=== PATIENT | male | born 1960 | race Caucasian/White ===

== ENCOUNTER 2019-07-08 13:38 | Inpatient (IN) | payer OTHER ==
[2019-07-08 17:33] LABS: Basophils # (Auto) 0.1 K/mm3 (0.0-0.1); Eosinophils # (Auto) 0.1 K/mm3 (0.0-0.4); Eosinophils % (Auto) 1.5 % (0.0-4.3); Monocytes # (Auto) 0.5 K/mm3 (0.0-0.8); Monocytes % (Auto) 9.6 % (0.0-7.3)
[2019-07-08 18:02] LABS: Alanine Aminotransferase 34 units/L (7-56); Albumin 4.3 g/dL (3.9-5); BUN/Creatinine Ratio 21; Blood Urea Nitrogen 21 mg/dL (9-20); Calcium 9.5 mg/dL (8.4-10.2); Hemolysis Index 0
[2019-07-08 18:14] LABS: Hemoglobin 6.5 gm/dl (11.8-15.2); Red Blood Count 3.23 M/mm3 (3.65-5.03)
[2019-07-08 18:15] LABS: Basophils % (Auto) 1.6 % (0.0-1.8); Hematocrit 20.6 % (35.5-45.6); Lymphocytes # (Auto) 1.7 K/mm3 (1.2-5.4); Lymphocytes % (Auto) 34.1 % (13.4-35.0); Mean Corpuscular HGB Conc 32 % (32-34); Mean Corpuscular Volume 64 fl (84-94); Mean Platelet Volume 8.9 fl (6-12); Platelet Count 118 K/mm3 (140-440); Red Cell Distribution Width 18.1 % (13.2-15.2)
[2019-07-08] MEDS ORDERED: SODIUM CHLORIDE 0.9% 500 ML 500 ML IV ONE (21:37)
--- NOTE | 2019-07-08 21:37 | Emergency Department Report ---
ED Dizziness HPI - General Chief Complaint: Nausea/Vomiting/Diarrhea Stated Complaint: NAUSEA/HEADACHE/DIZZY Time Seen by Provider: 07/08/19 20:15 Source: patient Mode of arrival: Ambulatory Limitations: No Limitations, Language Barrier (Manager Credit Risk was utilized DAJUAN Vazquez) - History of Present Illness Initial Comments: 59-year-old male presents emerged department complaining of a one-week history of gradually worsening dizziness and a couple day history of nausea with episodes of vomiting. Reports symptoms been associated with a dull headache and occasional blurred vision but denies any chest pain, shortness of breath, abdominal pain, fever, chills, sweats, hemoptysis, hematemesis, hematochezia. Reports no rashes. Ports no new no new no new medications. Ports having a possible history of cirrhosis but unsure of the type of the of the origin. He reports no illicit drug use or EtOH history nor does he report any trauma. MD Complaint: dizziness, lightheadedness History of Same: Yes History of Trauma: No Severity: mild, moderate Worsens With: movement Associated Symptoms: malaise. denies: ataxia, confusion, fever/chills, shortness of breath, syncope, weakness - Related Data Previous Rx's Medication Instructions Recorded Last Taken Type Famotidine [Pepcid] 20 mg PO BID #60 tablet 02/13/15 Unknown Rx Ferrous Sulfate [Feosol 325 MG tab] 325 mg PO TID #90 tablet 02/13/15 Unknown Rx Levothyroxine [Synthroid] 100 mcg PO DAILY@0600 #30 tablet 02/13/15 Unknown Rx Promethazine [Phenergan SUPPOS] 25 mg AL Q6H PRN #30 supp.rect 02/13/15 Unknown Rx Spironolactone [Aldactone] 50 mg PO QDAY #30 tablet 02/13/15 Unknown Rx nadoloL [Corgard] 40 mg PO QDAY #30 tablet 02/13/15 Unknown Rx Allergies Allergy/AdvReac Type Severity Reaction Status Date / Time No Known Allergies Allergy Unverified 02/09/15 15:23 ED Review of Systems ROS: Stated complaint: NAUSEA/HEADACHE/DIZZY Other details as noted in HPI Comment: All other systems reviewed and negative ED Past Medical Hx - Past Medical History Hx Congestive Heart Failure: No Hx Diabetes: No Hx Asthma: No Hx COPD: No - Surgical History Past Surgical History?: Yes Additional Surgical History: left hand surgery. right upper arm - Social History Smoking Status: Never Smoker Substance Use Type: None - Medications Home Medications: Home Medications Medication Instructions Recorded Confirmed Last Taken Type Famotidine [Pepcid] 20 mg PO BID #60 tablet 02/13/15 Unknown Rx Ferrous Sulfate [Feosol 325 MG tab] 325 mg PO TID #90 tablet 02/13/15 Unknown Rx Levothyroxine [Synthroid] 100 mcg PO DAILY@0600 #30 tablet 02/13/15 Unknown Rx Promethazine [Phenergan SUPPOS] 25 mg AL Q6H PRN #30 supp.rect 02/13/15 Unknown Rx Spironolactone [Aldactone] 50 mg PO QDAY #30 tablet 02/13/15 Unknown Rx nadoloL [Corgard] 40 mg PO QDAY #30 tablet 02/13/15 Unknown Rx ED Physical Exam - General Limitations: No Limitations General appearance: alert, in no apparent distress - Head Head exam: Present: atraumatic, normocephalic - Eye Eye exam: Present: normal appearance, PERRL, EOMI. Absent: conjunctival injection, nystagmus Pupils: Present: normal accommodation - ENT ENT exam: Present: normal exam, normal orophraynx, mucous membranes moist, TM's normal bilaterally, other (Severe dental erosion appears to be almost uniform) - Neck Neck exam: Present: normal inspection, full ROM, other (No JVD noted.). Absent: meningismus, lymphadenopathy, thyromegaly - Respiratory Respiratory exam: Present: normal lung sounds bilaterally. Absent: respiratory distress, wheezes, rales, chest wall tenderness, accessory muscle use - Cardiovascular Cardiovascular Exam: Present: regular rate, normal rhythm. Absent: bradycardia, tachycardia, systolic murmur, diastolic murmur, rubs, gallop - GI/Abdominal GI/Abdominal exam: Present: soft, normal bowel sounds, other (No Rovsing sign, no Lara Rogers, no Riley sign, no tenderness at McBurney's.. No CVA tenderness.). Absent: tenderness, guarding, rebound - Rectal Rectal exam: Present: deferred, normal inspection, heme (+) stool. Absent: normal rectal tone, fecal impaction, mass, normal prostate, prostate tenderness - exam: Present: normal inspection - Extremities Exam Extremities exam: Present: normal inspection, full ROM, normal capillary refill - Back Exam Back exam: Present: normal inspection. Absent: CVA tenderness (R), CVA tenderness (L), muscle spasm - Neurological Exam Neurological exam: Present: alert, oriented X3, CN II-XII intact, normal gait. Absent: motor sensory deficit - Psychiatric Psychiatric exam: Present: normal affect, normal mood. Absent: anxious, flat affect, manic - Skin Skin exam: Present: warm, dry, intact, normal color. Absent: rash, cyanosis, diaphoretic, erythema ED Course Vital Signs 07/08/19 14:12 Temperature 97.4 F L Pulse Rate 55 L Respiratory 16 Rate Blood Pressure 118/65 O2 Sat by Pulse 98 Oximetry ED Medical Decision Making - Lab Data Result diagrams: 07/08/19 16:38 07/08/19 16:38 Critical care attestation.: If time is entered above; I have spent that time in minutes in the direct care of this critically ill patient, excluding procedure time. ED Disposition Clinical Impression: GI bleed, Anemia Disposition: OP ADMIT IP TO THIS HOSP Is pt being admited?: Yes Does the pt Need Aspirin: No Condition: Stable Referrals: PRIMARY CARE, [Primary Care Provider] - 3-5 Days
[2019-07-08] MEDS ORDERED: MAGNESIUM HYDROXIDE (MOM) ORAL LIQD UDC PO PRN (22:13)
[2019-07-08] MEDS ORDERED: ONDANSETRON 4 MG/2 ML INJ IV PRN (22:13)
[2019-07-08] MEDS ORDERED: ACETAMINOPHEN 325 MG TAB PO PRN (22:13)
--- NOTE | 2019-07-08 23:03 | History and Physical Report ---
History of Present Illness Date of examination: 07/08/19 Date of admission: 07/08/19 21:38 Chief complaint: Dizziness Nausea History of present illness: 59 year old male seen in the ER complaining of dizziness which has been ongoing for a few days. He has also been having some nausea and vomiting. He denies any diarrhea. No bright red blood per rectum. He denies any fever, no chills, no abdominal pain. Denies any headaches. No chest pain or shortness of breath. Work up in the ER reveals a low hemoglobin of 6.5.,elevated blood glucose in the 200's but denies history of Diabetes Mellitus. Past History Past Medical History: hypothyroidism Past Surgical History: Other (Left Hand surgery) Social history: no significant social history Family history: no significant family history Medications and Allergies Allergies Allergy/AdvReac Type Severity Reaction Status Date / Time No Known Allergies Allergy Unverified 02/09/15 15:23 Home Medications Medication Instructions Recorded Confirmed Last Taken Type Levothyroxine [Synthroid] 100 mcg PO DAILY@0600 #30 tablet 02/13/15 07/08/19 Unknown Rx Spironolactone [Aldactone] 50 mg PO QDAY #30 tablet 02/13/15 07/08/19 Unknown Rx nadoloL [Corgard] 40 mg PO QDAY #30 tablet 02/13/15 07/08/19 Unknown Rx Furosemide [Lasix TAB] 40 mg PO QDAY 07/08/19 07/08/19 Unknown History Active Meds: Active Medications Acetaminophen (Tylenol) 650 mg PO Q4H PRN PRN Reason: Pain MILD(1-3)/Fever >100.5/RENO Magnesium Hydroxide (Milk Of Magnesia) 30 ml PO Q4H PRN PRN Reason: Constipation Ondansetron HCl (Zofran) 4 mg IV Q8H PRN PRN Reason: Nausea And Vomiting Sodium Chloride (Sodium Chloride Flush Syringe 10 Ml) 10 ml IV BID SMITA Sodium Chloride (Sodium Chloride Flush Syringe 10 Ml) 10 ml IV PRN PRN PRN Reason: LINE FLUSH Review of Systems Constitutional: no fever, no chills Cardiovascular: no chest pain, no palpitations Respiratory: shortness of breath Gastrointestinal: nausea, no vomiting, no diarrhea Genitourinary Male: dysuria, hematuria Musculoskeletal: no neck pain, no low back pain Integumentary: no rash, no pruritis Neurological: other (Dizziness), no syncope, no change in mentation Exam - Constitutional Vitals: Temp Pulse Resp BP Pulse Ox 98.0 F 55 L 16 119/73 98 07/08/19 22:12 07/08/19 22:12 07/08/19 22:12 07/08/19 22:12 07/08/19 22:12 General appearance: Present: no acute distress, well-nourished - EENT Eyes: Present: PERRL, EOM intact ENT: hearing intact, clear oral mucosa, dentition normal - Neck Neck: Present: supple, normal ROM - Respiratory Respiratory effort: normal Respiratory: bilateral: CTA - Cardiovascular Rhythm: regular Heart Sounds: Present: S1 & S2 - Extremities Extremities: no ischemia, pulses intact, pulses symmetrical, No edema, Full ROM Peripheral Pulses: within normal limits - Abdominal General gastrointestinal: Present: soft, non-tender, non-distended - Integumentary Integumentary: Present: clear, warm, dry, pale - Musculoskeletal Musculoskeletal: strength equal bilaterally - Psychiatric Psychiatric: appropriate mood/affect, intact judgment & insight, cooperative - Neurologic Neurologic: CNII-XII intact, moves all extremities Results - Labs CBC & Chem 7: 07/08/19 16:38 07/08/19 16:38 Labs: Abnormal lab results 07/08/19 07/08/19 07/08/19 Range/Units 16:38 16:38 21:40 RBC 3.23 L (3.65-5.03) M/mm3 Hgb 6.5 L (11.8-15.2) gm/dl Hct 20.6 L (35.5-45.6) % MCV 64 L (84-94) fl MCH 20 L (28-32) pg RDW 18.1 H (13.2-15.2) % Plt Count 118 L (140-440) K/mm3 [place] % (Auto) 9.6 H (0.0-7.3) % Sodium 135 L (137-145) mmol/L Chloride 93.9 L (98-107) mmol/L BUN 21 H (9-20) mg/dL Glucose 215 H (75-100) mg/dL AST 59 H (5-40) units/L Alkaline Phosphatase 278 H (35-129) units/L Crossmatch See Detail Assessment and Plan - Patient Problems (1) Anemia Current Visit: Yes Status: Acute Plan to address problem: Probably from GI bleed . Will transfuse with packed red blood cells. Will monitor CBC. (2) GI bleed Current Visit: Yes Status: Acute Plan to address problem: He has denied any rectal bleeding. Stool is guaiac positive. Will consult Gastorenterology for further evaluation . (3) Hypothyroidism Current Visit: No Status: Acute Plan to address problem: Continue on levothyroxine once medications are reconciled. (4) DVT prophylaxis Current Visit: Yes Status: Acute Plan to address problem: Placed on sequential compression device. (5) Full code status Current Visit: Yes Status: Acute
[2019-07-09] MEDS ORDERED: SODIUM CHLORIDE 0.9% 500 ML 500 ML ONE (00:50)
[2019-07-09 05:59] LABS: Basophils # (Auto) 0.1 K/mm3 (0.0-0.1); Basophils % (Auto) 1.5 % (0.0-1.8); Eosinophils # (Auto) 0.1 K/mm3 (0.0-0.4); Eosinophils % (Auto) 1.7 % (0.0-4.3); Hemoglobin 6.8 gm/dl (11.8-15.2); Lymphocytes # (Auto) 1.4 K/mm3 (1.2-5.4); Lymphocytes % (Auto) 28.5 % (13.4-35.0); Mean Corpuscular HGB Conc 31 % (32-34); Monocytes # (Auto) 0.5 K/mm3 (0.0-0.8); Monocytes % (Auto) 9.3 % (0.0-7.3); Platelet Count 111 K/mm3 (140-440); Red Blood Count 3.32 M/mm3 (3.65-5.03); Red Cell Distribution Width 19.6 % (13.2-15.2)
[2019-07-09 06:02] LABS: Mean Corpuscular Volume 66 fl (84-94)
[2019-07-09 06:09] LABS: INR 1.23 (0.87-1.13)
[2019-07-09 06:22] LABS: BUN/Creatinine Ratio 23; Blood Urea Nitrogen 21 mg/dL (9-20); Calcium 9.1 mg/dL (8.4-10.2); Hemolysis Index 0
--- NOTE | 2019-07-09 11:01 | Gastroenterology Consultation ---
History of Present Illness - Reason for Consult Consult date: 07/09/19 heme positive stool Requesting physician: LETY WATERS - History of Present Illness Patient is a 59 y/o male with PMH of hypothyroidism and cirrhosis who presented to ED with c/o generalized weakness, dizziness, and N/V. Upon admission, he was found to be anemic with H/H 6.5/20.6 and stool occult positive to which GI has been consulted. Patient is previously known to our service from a prior hospitalization in 2014 for anemia and new diagnosis of cirrhosis possibly 2/2 steatohepatitis with liver found to be nodular on CT/ultrasound, along with ascites requiring paracentesis. 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 He was discharged on non-selective beta elijah and diuretics but has been lost to follow up since that time. This morning patient was sitting in bed w/o acute distress. History obtained via assistance of language line police patrol lieutenant. Denies fever, abdominal pain, jaundice, wt loss, CP, SOB, diarrhea, constipation, or active signs of bleeding such as hematemesis, melena, or hematochezia. States stool was brownish/white with last BM. Admits to N/V yesterday with non-bloody emesis. Of note, blood glucose was elevated and A1C 10.2 today. Reports compliance with taking medications for liver disease (nadolol, lasix, and aldactone) at home (prescribed by PCP?). No ETOH abuse or IV drug use. Tolerated diet for breakfast. Past History Past Medical History: other (see HPI) Past Surgical History: Other (Left Hand surgery) Social history: no significant social history. denies: alcohol abuse Family history: no significant family history Medications and Allergies Allergies Allergy/AdvReac Type Severity Reaction Status Date / Time No Known Allergies Allergy Unverified 02/09/15 15:23 Home Medications Medication Instructions Recorded Confirmed Last Taken Type Levothyroxine [Synthroid] 100 mcg PO DAILY@0600 #30 tablet 02/13/15 07/08/19 Unknown Rx Spironolactone [Aldactone] 50 mg PO QDAY #30 tablet 02/13/15 07/08/19 Unknown Rx nadoloL [Corgard] 40 mg PO QDAY #30 tablet 02/13/15 07/08/19 Unknown Rx Furosemide [Lasix TAB] 40 mg PO QDAY 07/08/19 07/08/19 Unknown History Active Meds: Active Medications Acetaminophen (Tylenol) 650 mg PO Q4H PRN PRN Reason: Pain MILD(1-3)/Fever >100.5/[place] Magnesium Hydroxide (Milk Of Magnesia) 30 ml PO Q4H PRN PRN Reason: Constipation Ondansetron HCl (Zofran) 4 mg IV Q8H PRN PRN Reason: Nausea And Vomiting Sodium Chloride (Sodium Chloride Flush Syringe 10 Ml) 10 ml IV BID SMITA Sodium Chloride (Sodium Chloride Flush Syringe 10 Ml) 10 ml IV PRN PRN PRN Reason: LINE FLUSH medications reviewed/updated as required Review of Systems - Review of Systems All systems: negative Constitutional: weakness Gastrointestinal: nausea, vomiting, no abdominal pain, no hematemesis, no melena, no hematochezia Exam - Constitutional Vital Signs: Temp Pulse Resp BP Pulse Ox 98.0 F 54 L 18 116/76 96 07/09/19 04:19 07/09/19 04:19 07/09/19 04:19 07/09/19 04:19 07/09/19 04:19 General appearance: no acute distress - EENT Eyes: PERRL, EOM intact ENT: hearing intact - Respiratory Respiratory effort: normal Respiratory: bilateral: CTA - Cardiovascular Rhythm: other (bradycardia) - Gastrointestinal General gastrointestinal: Present: soft, non-tender, distended, normal bowel sounds - Integumentary Integumentary: Present: warm, dry - Neurologic Neurological: alert and oriented x3 - Labs CBC & Chem 7: 07/09/19 04:38 07/09/19 04:38 Lab Results: Laboratory Results - last 24 hr 07/08/19 07/08/19 07/08/19 16:38 16:38 21:40 WBC 5.1 RBC 3.23 L Hgb 6.5 L Hct 20.6 L MCV 64 L MCH 20 L MCHC 32 RDW 18.1 H Plt Count 118 L Lymph % (Auto) 34.1 [place] % (Auto) 9.6 H Eos % (Auto) 1.5 Baso % (Auto) 1.6 Lymph # 1.7 [place] # 0.5 Eos # 0.1 Baso # 0.1 Seg Neutrophils % 53.2 Seg Neutrophils # 2.7 PT INR Sodium 135 L Potassium 4.4 Chloride 93.9 L Carbon Dioxide 24 Anion Gap 22 BUN 21 H Creatinine 1.0 Estimated GFR > 60 BUN/Creatinine Ratio 21 Glucose 215 H Hemoglobin A1c Calcium 9.5 Total Bilirubin 0.60 AST 59 H ALT 34 Alkaline Phosphatase 278 H Total Protein 7.9 Albumin 4.3 Albumin/Globulin Ratio 1.2 Blood Type O POSITIVE Antibody Screen Negative Crossmatch See Detail 07/09/19 07/09/19 07/09/19 04:38 04:38 04:38 WBC 5.0 RBC 3.32 L Hgb 6.8 L Hct 22.0 L MCV 66 L MCH 21 L MCHC 31 L RDW 19.6 H Plt Count 111 L Lymph % (Auto) 28.5 [place] % (Auto) 9.3 H Eos % (Auto) 1.7 Baso % (Auto) 1.5 Lymph # 1.4 [place] # 0.5 Eos # 0.1 Baso # 0.1 Seg Neutrophils % 59.0 Seg Neutrophils # 2.9 PT 15.7 H INR 1.23 H Sodium 137 Potassium 4.0 Chloride 97.5 L Carbon Dioxide 22 Anion Gap 22 BUN 21 H Creatinine 0.9 Estimated GFR > 60 BUN/Creatinine Ratio 23 Glucose 245 H Hemoglobin A1c Calcium 9.1 Total Bilirubin AST ALT Alkaline Phosphatase Total Protein Albumin Albumin/Globulin Ratio Blood Type Antibody Screen Crossmatch 07/09/19 04:38 WBC RBC Hgb Hct MCV MCH MCHC RDW Plt Count Lymph % (Auto) [place] % (Auto) Eos % (Auto) Baso % (Auto) Lymph # [place] # Eos # Baso # Seg Neutrophils % Seg Neutrophils # PT INR Sodium Potassium Chloride Carbon Dioxide Anion Gap BUN Creatinine Estimated GFR BUN/Creatinine Ratio Glucose Hemoglobin A1c 10.2 H Calcium Total Bilirubin AST ALT Alkaline Phosphatase Total Protein Albumin Albumin/Globulin Ratio Blood Type Antibody Screen Crossmatch Assessment and Plan 1.acute on chronic anemia 2.cirrhosis -afebrile -WBC WNL -plt 111, INR 1.23 -LFTs- T.corbin 0.60, AT 59, ALT 34, alk phos 278 -H/H 6.8/22.0-blood transfusion pending -continue to monitor H/H and transfuse as needed -abd U/S and CT 2014 showed cirrhosis and ascites (required paracentesis) -EGD/colonoscopy 2014 showed small esophageal varices, 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 -no active/overt signs of bleeding; currently HD stable -acute hepatitis panel and abdominal ultrasound -will schedule for EGD/colonoscopy tomorrow for further evaluation of anemia given acute drop -okay for clear liquids today then NPO after MN -start on PPI -hold blood thinning medications -resume home medications- diuretics/nadolol -continue to trend labs and supportive care -will follow 3.hypothyroidism 4.DM?-A1C 10.2
--- NOTE | 2019-07-09 14:20 | Progress Note ---
Assessment and Plan / Acute Symptomatic Anemia Probably from GI bleed. transfuse with packed red blood cells. Will monitor CBC. / GI bleed He has denied any rectal bleeding. Stool is guaiac positive. consulted Gastorenterology for further evaluation - EGD and colonoscopy tomorrow /Hypothyroidism Continue on levothyroxine /Hepatic cirrhosis, compensated cont home meds /Thrombocytopenia, cont to monitor CBC / DVT prophylaxis Placed on sequential compression device. - Full code status - clear liquid diet, NPO after midnight Brief history: Patient is a 59 y/o male with PMH of hypothyroidism and cirrhosis who presented to ED with c/o generalized weakness, dizziness, and N/V. Upon admission, he was found to be anemic with H/H 6.5/20.6 and stool occult positive to which GI has been consulted. Subjective Date of service: 07/09/19 Interval history: Patient seen and examined no active bleeding, plan for endoscopy tomorrow denies any chest pain or abdominal pain Objective - Constitutional Vitals: Vital Signs - 12hr 07/09/19 07/09/19 02:20 04:19 Temperature 98.2 F 98.0 F Pulse Rate 56 L 54 L Respiratory 20 18 Rate Blood Pressure 116/76 Blood Pressure 124/75 [Right] O2 Sat by Pulse 97 96 Oximetry General appearance: Present: no acute distress, obese - EENT Eyes: PERRL, EOM intact ENT: hearing intact, clear oral mucosa Ears: bilateral: normal - Neck Neck: supple, normal ROM - Respiratory Respiratory effort: normal Respiratory: bilateral: CTA - Cardiovascular Rhythm: regular Heart Sounds: Present: S1 & S2. Absent: gallop, rub Extremities: pulses intact, No edema, normal color, Full ROM - Gastrointestinal General gastrointestinal: Present: soft, non-tender, non-distended, normal bowel sounds - Integumentary Integumentary: clear, warm, dry - Musculoskeletal Musculoskeletal: 1, strength equal bilaterally - Neurologic Neurologic: moves all extremities - Psychiatric Psychiatric: memory intact, appropriate mood/affect, intact judgment & insight - Labs CBC & Chem 7: 07/11/19 05:19 07/10/19 07:59 Labs: Abnormal lab results 07/08/19 07/08/19 07/08/19 Range/Units 16:38 16:38 21:40 RBC 3.23 L (3.65-5.03) M/mm3 Hgb 6.5 L (11.8-15.2) gm/dl Hct 20.6 L (35.5-45.6) % MCV 64 L (84-94) fl MCH 20 L (28-32) pg MCHC (32-34) % RDW 18.1 H (13.2-15.2) % Plt Count 118 L (140-440) K/mm3 [place] % (Auto) 9.6 H (0.0-7.3) % PT (12.2-14.9) Sec. INR (0.87-1.13) Sodium 135 L (137-145) mmol/L Chloride 93.9 L (98-107) mmol/L BUN 21 H (9-20) mg/dL Glucose 215 H (75-100) mg/dL Hemoglobin A1c (4-6) % AST 59 H (5-40) units/L Alkaline Phosphatase 278 H (35-129) units/L Crossmatch See Detail 07/09/19 07/09/19 07/09/19 Range/Units 04:38 04:38 04:38 RBC 3.32 L (3.65-5.03) M/mm3 Hgb 6.8 L (11.8-15.2) gm/dl Hct 22.0 L (35.5-45.6) % MCV 66 L (84-94) fl MCH 21 L (28-32) pg MCHC 31 L (32-34) % RDW 19.6 H (13.2-15.2) % Plt Count 111 L (140-440) K/mm3 [place] % (Auto) 9.3 H (0.0-7.3) % PT 15.7 H (12.2-14.9) Sec. INR 1.23 H (0.87-1.13) Sodium (137-145) mmol/L Chloride 97.5 L (98-107) mmol/L BUN 21 H (9-20) mg/dL Glucose 245 H (75-100) mg/dL Hemoglobin A1c (4-6) % AST (5-40) units/L Alkaline Phosphatase (35-129) units/L Crossmatch 07/09/19 Range/Units 04:38 RBC (3.65-5.03) M/mm3 Hgb (11.8-15.2) gm/dl Hct (35.5-45.6) % MCV (84-94) fl MCH (28-32) pg MCHC (32-34) % RDW (13.2-15.2) % Plt Count (140-440) K/mm3 [place] % (Auto) (0.0-7.3) % PT (12.2-14.9) Sec. INR (0.87-1.13) Sodium (137-145) mmol/L Chloride (98-107) mmol/L BUN (9-20) mg/dL Glucose (75-100) mg/dL Hemoglobin A1c 10.2 H (4-6) % AST (5-40) units/L Alkaline Phosphatase (35-129) units/L Crossmatch
[2019-07-09] MEDS ORDERED: D5W/0.9% NACL 1,000 ML IV SCH (15:00)
[2019-07-09] MEDS ORDERED: POLYETHYLENE GLYCOL/ELECT SOLN 4000 ML PO ONE ×2 (16:00→19:00)
[2019-07-09 18:00] LABS: Hepatitis B Surface Antigen Non-Reactive (Negative); Hepatitis C Virus Antibody Non-Reactive (NonReactive)
--- NOTE | 2019-07-09 18:32 | Ultrasound Report ---
ULTRASOUND ABDOMEN, COMPLETE INDICATION: cirrhosis. COMPARISON: CT dated 02/09/2015 FINDINGS: Pancreas: Normal. Abdominal Aorta: Normal. IVC: Normal. Liver: Lobulated contour of the liver with increased echogenicity consistent with cirrhosis. Gallbladder: Normal. Bile ducts: Normal. Common Bile Duct measures 2 mm. Right Kidney: Normal. Left Kidney: Normal. Spleen: Upper limits of normal in size. Free fluid: Ascites is present Additional Findings: None. IMPRESSION: 1. Cirrhosis 2. Probable portal hypertension 3. Ascites Signer Name: Marcin Escobar MD Signed: 07/09/2019 6:28 PM Workstation Name: [id number]
[2019-07-09] MEDS: PANTOPRAZOLE 40 MG INJ IV SCH (18:51)
[2019-07-09] MEDS: SODIUM CHLORIDE 0.9% 1000 ML 1,000 ML IV SCH (21:41)
[2019-07-10] MEDS: PANTOPRAZOLE 40 MG INJ IV SCH ×3 (00:30→22:22)
[2019-07-10] MEDS: SODIUM CHLORIDE 0.9% 1000 ML 1,000 ML IV SCH ×2 (07:42→22:22)
[2019-07-10 09:01] LABS: Basophils # (Auto) 0.1 K/mm3 (0.0-0.1); Basophils % (Auto) 1.8 % (0.0-1.8); Eosinophils # (Auto) 0.1 K/mm3 (0.0-0.4); Eosinophils % (Auto) 2.2 % (0.0-4.3); Hematocrit 22.4 % (35.5-45.6); Hemoglobin 6.9 gm/dl (11.8-15.2); Lymphocytes # (Auto) 1.2 K/mm3 (1.2-5.4); Lymphocytes % (Auto) 29.9 % (13.4-35.0); Mean Corpuscular HGB Conc 31 % (32-34); Monocytes # (Auto) 0.4 K/mm3 (0.0-0.8); Monocytes % (Auto) 8.9 % (0.0-7.3); Red Blood Count 3.37 M/mm3 (3.65-5.03); Red Cell Distribution Width 19.2 % (13.2-15.2)
[2019-07-10 09:07] LABS: BUN/Creatinine Ratio 21; Blood Urea Nitrogen 17 mg/dL (9-20); Calcium 8.4 mg/dL (8.4-10.2); Hemolysis Index 1
[2019-07-10 09:13] LABS: Mean Corpuscular Volume 66 fl (84-94); Platelet Count 91 K/mm3 (140-440)
[2019-07-10] MEDS ORDERED: SODIUM CHLORIDE 0.9% 500 ML 500 ML IV NR (10:35)
--- NOTE | 2019-07-10 12:57 | Progress Note ---
Assessment and Plan / Acute Symptomatic Anemia Probably from GI bleed. h/h remained low, transfuse another unit today Will monitor CBC. / GI bleed He has denied any rectal bleeding. Stool is guaiac positive. consulted Gastorenterology for further evaluation - EGD and colonoscopy today /Hypothyroidism Continue on levothyroxine /Hepatic cirrhosis, compensated cont home meds /Thrombocytopenia, cont to monitor CBC / DVT prophylaxis Placed on sequential compression device. - Full code status - resume diet following endoscopy Brief history: Patient is a 59 y/o male with PMH of hypothyroidism and cirrhosis who presented to ED with c/o generalized weakness, dizziness, and N/V. Upon admission, he was found to be anemic with H/H 6.5/20.6 and stool occult positive to which GI has been consulted. Subjective Date of service: 07/10/19 Interval history: Patient seen and examined no active bleeding, plan for endoscopy today denies any chest pain or abdominal pain Objective - Constitutional Vitals: Vital Signs - 12hr 07/10/19 07/10/19 04:32 11:53 Temperature 98.1 F 97.9 F Pulse Rate 52 L 53 L Respiratory 18 14 Rate Blood Pressure 128/80 116/78 O2 Sat by Pulse 97 98 Oximetry - Labs CBC & Chem 7: 07/11/19 05:19 07/10/19 07:59 Labs: Abnormal lab results 07/08/19 07/10/19 07/10/19 Range/Units 21:40 07:59 07:59 WBC 4.0 L (4.5-11.0) K/mm3 RBC 3.37 L (3.65-5.03) M/mm3 Hgb 6.9 L (11.8-15.2) gm/dl Hct 22.4 L (35.5-45.6) % MCV 66 L (84-94) fl MCH 21 L (28-32) pg MCHC 31 L (32-34) % RDW 19.2 H (13.2-15.2) % Plt Count 91 L (140-440) K/mm3 [place] % (Auto) 8.9 H (0.0-7.3) % Glucose 180 H (75-100) mg/dL Crossmatch See Detail
[2019-07-10] MEDS ORDERED: SODIUM CHLORIDE 0.9% 1000 ML 1,000 ML IV SCH (14:00)
--- NOTE | 2019-07-10 14:19 | Anesthesia Day of Surgery ---
Anesthesia Day of Surgery - Day of Surgery Patient Examined: Yes Patient H&P Reviewed: Yes Patient is NPO: Yes
--- NOTE | 2019-07-10 14:21 | Anesthesia Consultation ---
Anesthesia Consult and Med Hx - Airway Anesthetic Teeth Evaluation: Poor ROM Head & Neck: Adequate Mental/Hyoid Distance: Adequate Mallampati Class: Class II Intubation Access Assessment: Probably Good - Pulmonary Exam CTA: Yes - Cardiac Exam Cardiac Exam: RRR - Pre-Operative Health Status ASA Pre-Surgery Classification: ASA3 Proposed Anesthetic Plan: General, MAC - Pulmonary Hx Smoking: Yes Hx Asthma: No COPD: No Hx Pneumonia: No - Cardiovascular System Hx Hypertension: Yes - Endocrine Hx End Stage Renal Disease: No Hx Cirrhosis: Yes Hx Hypothyroidism: Yes
[2019-07-10] MEDS ORDERED: GLYCOPYRROLATE 0.4 MG/2 ML INJ ONE (15:30)
[2019-07-10] MEDS ORDERED: LIDOCAINE MPF (2%) 20 MG/1 ML VIAL 5 ML ONE (15:30)
[2019-07-10] MEDS ORDERED: PHENYLEPHRINE/NS 1,000 MCG/10 ML SYRINGE (OR USE) IV ONE (15:30)
[2019-07-10] MEDS ORDERED: propofoL 200 MG/20 ML VIAL IV ONE ×4 (15:45→16:11)
--- NOTE | 2019-07-10 16:50 | Post Operative Note ---
Pre-op diagnosis: anemia Post-op diagnosis: same Findings: EGD: Grade III varices w/o bleeding stigmata, banding x 2 - portal gastropathy - irregular raised, nodular polyp like are antrum ( 3 area larges approx 1 1/2 cm), bx's - negative other Procedure: EGD Anesthesia: MAC Surgeon: DANETTE WHITTINGTON Estimated blood loss: none Pathology: list Specimen disposition: to lab Condition: stable Disposition: floor
--- NOTE | 2019-07-10 17:17 | Operative Report ---
COLONOSCOPY PROCEDURE NOTE INDICATIONS: 1. Anemia. 2. Gastrointestinal bleed. MEDICATIONS: Propofol per TELEPHONE INSTALLER. COMPLICATIONS: None. DESCRIPTION OF PROCEDURE: The patient brought to procedure suite. The patient had the procedure discussed with him at length. All risks, complications, and benefits discussed after which the patient signed for the procedure performed. The patient was placed in left lateral decubitus position. Rectal exam performed prior to insertion of the scope. After adequate sedation medication as above, scope was introduced into the rectum and brought to level of cecum. Ileocecal valve, appendiceal orifice, cecal strap were visualized. Colonoscope was then removed and mucosa of colon visualized. Prep quality was poor. The patient's vital signs remained stable throughout the procedure. FINDINGS: This is a poor prep, but procedure was completed. There were no obvious mass lesions or polyps noted during this procedure. There were no diverticula noted during this procedure. Retroflexion view performed in the rectum showed large internal hemorrhoids. The patient tolerated the procedure well. No complications during the procedure. IMPRESSION: 1. Poor prep and so cannot rule out small lesions. 2. Large internal hemorrhoids. 3. Otherwise, normal colonoscopy. RECOMMENDATIONS: 1. High fiber diet and continue current medications. 2. Repeat colonoscopy in 3-5 years. JOB# [id number] CAB/NTS
--- NOTE | 2019-07-10 18:24 | Operative Report ---
OPERATION PERFORMED: EGD with cold biopsy. INDICATIONS: 1. Anemia. 2. GI bleed. MEDICATIONS: Propofol per REPAIRER WOOD FURNITURE. COMPLICATIONS: None. DESCRIPTION OF PROCEDURE: The patient was brought to procedure suite. The patient had the procedure discussed with him at length. All risks, complications and benefits discussed after which the patient signed for the procedure to be performed. The patient was placed in a flat decubitus position. Mouth block was placed in the patient's oral cavity. After adequate sedation medication as above, endoscope placed in the mouth and brought to the level of the second portion of duodenum. Retroflexion view performed. The patient's vital signs remained stable throughout the procedure. FINDINGS: There were 3 columns of grade 3 varices, noted in mid to distal esophagus. There was a small hiatal hernia at GE junction at 38 cm from the gums. Esophagus otherwise appeared to be normal. There was moderate proximal body portal gastropathy with no stigmata of bleeding noted. In the antrum, there was noted to be raised lesions. These lesions were somewhat pedunculated but not fully so in the antrum. There were 3 of said lesions, which also had a ____ tip. Lesions were 8 to approximately 12 mm in size. Multiple biopsies were taken and sent to pathology. Remaining stomach otherwise appeared to be normal. Duodenum appeared to be normal. After this, especially endoscope was removed and a 7 shooter band placed at tip of the endoscope. The endoscope was then reinserted and using standard technique variceal banding of esophageal varices were performed. Postprocedure, the patient was satisfactory. The patient tolerated the procedure well. No complications during the procedure. IMPRESSION: 1. Esophageal varices, status post banding as noted above. 2. Hiatal hernia. 3. Portal gastropathy. 4. Irregular raised nodular lesions in the antrum. Most likely benign, but cannot rule out malignancy. Biopsies taken and sent to pathology. 5. Otherwise, normal EGD. RECOMMENDATIONS: 1. Followup biopsy results. 2. Nonselective beta elijah prior to discharge. 3. Follow hematocrit and transfuse as needed. 4. Colonoscopy, follow further recommendation based on colonoscopy results. JOB# [id number] CAB/NTS
[2019-07-11 05:50] LABS: Basophils # (Auto) 0.1 K/mm3 (0.0-0.1); Basophils % (Auto) 1.6 % (0.0-1.8); Eosinophils # (Auto) 0.1 K/mm3 (0.0-0.4); Eosinophils % (Auto) 2.4 % (0.0-4.3); Hematocrit 24.7 % (35.5-45.6); Hemoglobin 7.7 gm/dl (11.8-15.2); Lymphocytes # (Auto) 1.2 K/mm3 (1.2-5.4); Lymphocytes % (Auto) 33.2 % (13.4-35.0); Mean Corpuscular HGB Conc 31 % (32-34); Monocytes # (Auto) 0.3 K/mm3 (0.0-0.8); Monocytes % (Auto) 8.4 % (0.0-7.3); Red Blood Count 3.59 M/mm3 (3.65-5.03)
[2019-07-11 05:51] LABS: Mean Corpuscular Volume 69 fl (84-94); Platelet Count 81 K/mm3 (140-440); Red Cell Distribution Width 21.4 % (13.2-15.2)
[2019-07-11] MEDS: PANTOPRAZOLE 40 MG INJ IV SCH (10:46)
--- NOTE | 2019-07-11 11:48 | Gastroenterology Progress Note ---
Assessment and Plan 1.acute on chronic anemia 2.cirrhosis -afebrile -WBC WNL -plt 81, INR 1.23 -acute hepatitis panel negative -LFTs- T.corbin 0.60, AT 59, ALT 34, alk phos 278 -H/H 7/.7/24.7-trending up -continue to monitor H/H and transfuse as needed -abd U/S and CT 2014 showed cirrhosis and ascites (required paracentesis) -EGD/colonoscopy 2014 showed small esophageal varices, GAVE w/o stigmata of bleeding (tx with APC), prepyloric abnormal mucosa with erosion (bx negative), transverse colon polyp (small bleeding; tx with APC), and internal hemorrhoids -patient with hx of cirrhosis 2/2 possibly steatohepatitis (no ETOH abuse) complicated by varices and ascites -clinically, patient is stable with no active signs of bleeding. Denies abd pain or N/V. No encephalopathy noted upon exam. -s/p repeat EGD/colonoscopy yesterday that showed: colonoscopy: large internal hemorrhoids - poor prep, negative other EGD: Grade III varices w/o bleeding stigmata, banding x 2 - portal gastropathy - irregular raised, nodular polyp like are antrum ( 3 area larges approx 1 1/2 cm), bx's - negative other -path result pending-f/u in clinic -continue PPI -continue nadolol -continue diuretics (increase aldactone to 50mg BID; lasix 40mg daily) -advance diet to GI soft (would not advance further x 1 week given banding) then low sodium -continue supportive care -patient okay to be d/c per GI standpoint on above medications with f/u in clinic in 1-2 weeks for further management/recommendations pending path results (results and plan of care discussed with patient with assistance of language line marketing operations analyst this am with understanding voiced; office information/card given to patient) Subjective Date of service: 07/11/19 Principal diagnosis: anemia, cirrhosis Interval history: No acute distress or active signs of bleeding. Objective - Constitutional Vitals: Temp Pulse Resp BP Pulse Ox 98.7 F 52 L 16 119/79 96 07/11/19 04:29 07/11/19 04:29 07/11/19 04:29 07/11/19 04:29 07/11/19 04:29 General appearance: no acute distress - EENT Eyes: PERRL, EOM intact ENT: hearing intact - Respiratory Respiratory effort: normal - Cardiovascular Rhythm: other (bradycardia) - Gastrointestinal General gastrointestinal: Present: soft, non-tender, distended (mildly; ascites), normal bowel sounds - Integumentary Integumentary: Present: warm, dry - Neurologic Neurological: alert and oriented x3 - Labs CBC & Chem 7: 07/11/19 05:19 07/10/19 07:59 Labs: Laboratory Results - last 24 hr 07/08/19 07/11/19 21:40 05:19 WBC 3.6 L RBC 3.59 L Hgb 7.7 L Hct 24.7 L MCV 69 L MCH 21 L MCHC 31 L RDW 21.4 H Plt Count 81 L Lymph % (Auto) 33.2 [place] % (Auto) 8.4 H Eos % (Auto) 2.4 Baso % (Auto) 1.6 Lymph # 1.2 [place] # 0.3 Eos # 0.1 Baso # 0.1 Seg Neutrophils % 54.4 Seg Neutrophils # 1.9 Blood Type O POSITIVE Antibody Screen Negative Crossmatch See Detail
[2019-07-11 12:53] VITALS: BP 131/78
--- NOTE | 2019-07-11 15:22 | Discharge Summary ---
Providers - Providers Date of Admission: 07/09/19 13:46 Date of discharge: 07/11/19 Attending physician: KEIKO ROBERTS 07/08/19 22:13 Consult to Physician [CONS] Routine Comment: Consulting Provider: DOUG CARVER Physician Instructions: Reason For Exam: HEMOCCULT POSITIVE STOOL Primary care physician: STONE MILL OPERATOR Hospitalization Condition: Stable Procedures: EGD: Grade III varices w/o bleeding stigmata, banding x 2 - portal gastropathy - irregular raised, nodular polyp like are antrum ( 3 area larges approx 1 1/2 cm), bx's - negative other colonoscopy: large internal hemorrhoids - poor prep, negative other Hospital course: Patient is a 59 y/o male with PMH of hypothyroidism and cirrhosis who presented to ED with c/o generalized weakness, dizziness, and N/V. Upon admission, he was found to be anemic with H/H 6.5/20.6 and stool occult positive to which GI has been consulted. Discharge diagnosis and Mx: / Acute Symptomatic Anemia from variceal GI bleed. s/p 2 units PRBC transfusion - stable on discharge / GI bleed consulted Gastorenterology for further evaluation - s/p EGD and colonoscopy showed Grade III varices w/o bleeding stigmata s/p banding x 2 and large internal hemorrhoids -path result pending-f/u in clinic -continue PPI /Hypothyroidism Continue on levothyroxine /Hepatic cirrhosis, compensated -continue nadolol -continue diuretics (increase aldactone to 50mg BID; lasix 40mg daily) /Thrombocytopenia, cont to monitor CBC / DVT prophylaxis Placed on sequential compression device. Disposition: DC-30 STILL A PATIENT Core Measure Documentation - Palliative Care Palliative Care/ Comfort Measures: Not Applicable - Core Measures Any of the following diagnoses?: none Exam - Physical Exam Narrative exam: General appearance: Present: no acute distress, obese - EENT Eyes: PERRL, EOM intact ENT: hearing intact, clear oral mucosa Ears: bilateral: normal - Neck Neck: supple, normal ROM - Respiratory Respiratory effort: normal Respiratory: bilateral: CTA - Cardiovascular Rhythm: regular Heart Sounds: Present: S1 & S2. Absent: gallop, rub Extremities: pulses intact, No edema, normal color, Full ROM - Gastrointestinal General gastrointestinal: Present: soft, non-tender, non-distended, normal bowel sounds - Integumentary Integumentary: clear, warm, dry - Musculoskeletal Musculoskeletal: 1, strength equal bilaterally - Neurologic Neurologic: moves all extremities - Psychiatric Psychiatric: memory intact, appropriate mood/affect, intact judgment & insight - Constitutional Vitals: Temp Pulse Resp BP Pulse Ox 98.2 F 53 L 19 131/78 97 07/11/19 11:58 07/11/19 11:58 07/11/19 11:58 07/11/19 11:58 07/11/19 11:58 Plan Activity: advance as tolerated Weight Bearing Status: Weight Bear as Tolerated Diet: low fat, low salt Care Plan Goals: YOU HAVE BEEN SEDATED SO NO DRIVING OR SIGNING IMPORTANT PAPERS TODAY. RESUME NORMAL ACTIVITIES TOMORROW. CALL DR FOR RECTAL BLEEDING OR CLOTS AND HEAD TO EMERGENCY ROOM. STAY OFF BLOOD THINNERS AND ASPIRIN FOR 3-5 DAYS. CALL [facility] ABDOMEN PAIN OR TEMP GREATER THAN 101 FOR 48 HOURS. ANY PROBLEMS WITH IV SITE TAKE WARM WASH CLOTH AND WRAP IN PLASTIC TWICE A DAY TIL IT FEELS BETTER. CALL OFFICE FOR FOLLOW APPOINTMENT Follow up with: PRIMARY MD JESUS [Primary Care Provider] - 3-5 Days DANETTE WHITTINGTON MD [Staff Physician] - 7 Days Prescriptions: Pantoprazole [Protonix TAB] 40 mg PO BID #60 tablet
[2019-07-11] MEDS ORDERED: SPIRONOLACTONE 50 MG TAB PO SCH (22:00)
[2019-07-11] MEDS ORDERED: PANTOPRAZOLE 40 MG TAB PO SCH (22:00)
[2019-07-12] MEDS ORDERED: FUROSEMIDE 40 MG TAB PO SCH (10:00)
[2019-07-12] MEDS ORDERED: NADOLOL 20 MG TAB PO SCH (10:00)
== END 2019-07-11 17:33 | disposition home or self-care (01) | DRG 327 ==
LOC: ED 13:38 → 3A 21:38 → OBSVTOIN 07-09 13:46
PROVIDERS: ADMIT Internal Medicine Geriatric Medicine; ATTEND Internal Medicine
PROC: 0DV64CZ Restriction of Stomach with Extraluminal Device, Percutaneous Endoscopic Approach (ICD-10-PCS; principal; 2019-07-10)
PROC: 0DJD8ZZ Inspection of Lower Intestinal Tract, Via Natural or Artificial Opening Endoscopic (ICD-10-PCS; 2019-07-10)
PROC: 30230N1 Transfusion of Nonautologous Red Blood Cells into Peripheral Vein, Open Approach (ICD-10-PCS; 2019-07-10)
PROC: 0DB78ZX Excision of Stomach, Pylorus, Via Natural or Artificial Opening Endoscopic, Diagnostic (ICD-10-PCS; 2019-07-10)
DX: K92.2 Gastrointestinal hemorrhage, unspecified (principal); D62 Acute posthemorrhagic anemia; I85.00 Esophageal varices without bleeding; D64.9 Anemia, unspecified; E03.9 Hypothyroidism, unspecified; K74.60 Unspecified cirrhosis of liver; D69.6 Thrombocytopenia, unspecified; I10 Essential (primary) hypertension; K64.8 Other hemorrhoids; K44.9 Diaphragmatic hernia without obstruction or gangrene; J33.8 Other polyp of sinus; K31.89 Other diseases of stomach and duodenum
CPT/HCPCS: 36415; 76700; 80048; 80053; 80074; 82271; 83036; 85014; 85018; 85025; 85610; 86850; 86900; 86901; 86920; 88305; 88342; 93005; 93010; G0378; C9113; J2370; J2704; J7030; J7040; P9016

== ENCOUNTER 2020-10-26 09:31 | Day surgery (SDC) | payer SELFPAY ==
[~2020-10-26 09:31] MED LIST: SODIUM CHLORIDE 0.9% 1000 ML 1,000 ML IV SCH
[2020-10-26] MEDS ORDERED: propofoL 200 MG/20 ML VIAL IV ONE ×2 (10:49→11:14)
[2020-10-26 12:26] VITALS: BP 126/93
== END 2020-10-26 12:05 | disposition home or self-care (01) ==
LOC: GIO 09:31
PROVIDERS: ATTEND Internal Medicine Gastroenterology
DX: I85.00 Esophageal varices without bleeding (principal); K31.7 Polyp of stomach and duodenum; D64.9 Anemia, unspecified; E03.9 Hypothyroidism, unspecified; K74.60 Unspecified cirrhosis of liver; E66.9 Obesity, unspecified; I10 Essential (primary) hypertension; E11.9 Type 2 diabetes mellitus without complications; K31.89 Other diseases of stomach and duodenum; Z98.890 Other specified postprocedural states; Z79.899 Other long term (current) drug therapy; Z86.718 Personal history of other venous thrombosis and embolism; Z68.35 Body mass index [BMI] 35.0-35.9, adult
CPT/HCPCS: 43239; 43244; 82962; 88305; 88342; J2704; J7030

== ENCOUNTER 2021-02-22 07:20 | Day surgery (SDC) | payer OTHER ==
[~2021-02-22 07:20] MED LIST changes: +LIDOCAINE MPF (2%) 20 MG/1 ML VIAL 5 ML ONE; +propofoL 200 MG/20 ML VIAL IV ONE
--- NOTE | 2021-02-22 08:47 | Anesthesia Consultation ---
Anesthesia Consult and Med Hx Date of service: 02/22/21 - Airway Anesthetic Teeth Evaluation: Good ROM Head & Neck: Adequate Mental/Hyoid Distance: Adequate Mallampati Class: Class III Intubation Access Assessment: Possibly Difficult - Pre-Operative Health Status ASA Pre-Surgery Classification: ASA3 Proposed Anesthetic Plan: MAC - Pulmonary Hx Smoking: No Hx Respiratory Symptoms: No COPD: No - Cardiovascular System Hx Hypertension: No Hx Heart Attack/AMI: No - Central Nervous System CVA: No - Endocrine Hx Renal Disease: No Hx Cirrhosis: Yes Hx Non-Insulin Dependent Diabetes: Yes Hx Hypothyroidism: Yes - Hematic Hx Anemia: Yes - Other Systems Hx Obesity: Yes (BMI 32) - Additional Comments Anesthesia Medical History Comments: No hx anesthetic complications. Patient was offered language line services but declined and elected for son at bedside to translate.
--- NOTE | 2021-02-22 08:47 | Anesthesia Day of Surgery ---
Anesthesia Day of Surgery - Day of Surgery Patient Examined: Yes Patient H&P Reviewed: Yes Patient is NPO: Yes
--- NOTE | 2021-02-22 10:42 | Short Stay Summary ---
Short Stay Documentation Date of service: 02/22/21 Narrative H&P: The patient presents for EGD due to esophageal varices with possible need to re band and for screening colonoscopy. Previous colonoscopy in 2019 revealed an inadequate prep. - History Past Medical History: liver disease, other (iron deficiency anemia, hx esphageal varices) Past Surgical History: No surgical history Social history: no significant social history - Allergies and Medications Current Medications: Allergies No Known Allergies Allergy (Unverified 02/09/15 15:23) Home Medications Medication Instructions Recorded Confirmed Last Taken Type Levothyroxine [Synthroid] 100 mcg PO DAILY@0600 #30 tablet 02/13/15 10/26/20 10/25/20 06:00 Rx nadoloL [Corgard] 40 mg PO QDAY #30 tablet 02/13/15 10/26/20 10/25/20 21:00 Rx Furosemide [Lasix TAB] 40 mg PO QDAY 07/08/19 10/26/20 10/25/20 06:00 History Spironolactone [Aldactone] 50 mg PO BID #60 tablet 07/11/19 10/26/20 10/25/20 21:00 Rx AtorvaSTATin 20 mg PO HS 10/26/20 10/26/20 10/25/20 21:00 History AtorvaSTATin [Lipitor] 20 mg PO QHS 02/17/21 02/17/21 Unknown History Metformin HCl [metFORMIN ER 1,000 mg PO 02/17/21 Unknown History Osmotic] amLODIPine/VALSARTAN [Exforge 02/17/21 Unknown History 5-320 mg Tablet] glipiZIDE [Glucotrol] 10 mg PO QDAY 02/17/21 02/17/21 Unknown History Active Medications Sodium Chloride (Nacl 0.9% 1000 Ml) 1,000 mls @ 50 mls/hr IV DIRECT SMITA - Physical exam General appearance: no acute distress, well-nourished Integumentary: no rash, no growths, no abnormal pigmentation HEENT: Atraumatic, PERRLA, EOMI, Mucous membr. moist/pink Lungs: Clear to auscultation, Normal air movement Breasts: deferred Heart: Regular rate, Normal S1, Normal S2, No murmurs Gastrointestinal: normoactive bowel sounds, no tenderness, no distended, no masses, no guarding, no organomegaly, obese Male Genitourinary: deferred Rectal Exam: normal exam-external/orifice, no tenderness, no hemorrhoids, no mass Extremities: no ischemia, pulses intact, pulses symmetrical, No edema, normal temperature, normal color, Full ROM Neurological: Normal gait, Normal speech, Strength at 5/5 X4 ext, Normal tone, Sensation intact, Cranial nerves 3-12 NL - Brief post op/procedure progress note Date of procedure: 02/22/21 Findings: see dictated reports. Estimated blood loss: none (Antral biopsies for h. pylori) Pathology: none Specimen disposition: to lab Condition: stable - Disposition Condition at discharge: Good Disposition: 01 HOME / SELF CARE / HOMELESS - Discharge Diagnoses (1) Colon cancer screening Status: Acute (2) Esophageal varices determined by endoscopy Status: Acute Short Stay Discharge Plan Activity: other (No driving for 24 hours) Weight Bearing Status: Full Weight Bearing Diet: diabetic Follow up with: PRIMARY MD JESUS [Primary Care Provider] - 7 Days
--- NOTE | 2021-02-22 10:49 | Operative Report ---
Operative Report Operative Report: Date of procedure: 02/22/2021 Preprocedure diagnosis: Iron deficiency anemia. Previous study in 2019 revealed an inadequate prep. Post procedure diagnosis: Normal study Procedure: Colonoscopy to the cecum Endoscopist: Dr. Quijano Anesthesia: Monitored anesthesia care per anesthesia department Estimated blood loss: 0 Medications: Monitored anesthesia care. See separate report by anesthesia for details. After careful discussion of the nature and purpose of the procedure as well as details of the technique risks benefits and alternatives the patient gave consent. Please see recent history and physical from the office. The patient was placed in the left lateral decubitus position and medicated per anesthesia. A rectal exam was performed sphincter tone was normal there were no masses palpable. The [employer] 570 scope was passed transanally and advanced under continuous direct vision without difficulty to the cecum. The colon was well prepared. The cecum was normal. The ascending colon was normal and on forward and retroflexed views. The transverse colon, descending colon, and sigmoid colon were normal. The rectum was normal on forward and retroflexed views. The procedure was well-tolerated overall and the patient was observed in recovery. Conclusions: Normal colonoscopy to the cecum. Plan: Repeat colonoscopy in 10 years. Signed electronically: Juanjose Quijano M.D.
--- NOTE | 2021-02-22 10:49 | Operative Report ---
Operative Report Operative Report: Date of procedure: 02/22/2021 Procedure: Esophagogastroduodenoscopy with biopsy for H. pylori Preprocedure diagnosis: History of large esophageal varices now for restudy and possible banding. Iron deficiency anemia. Post procedure diagnosis: Small esophageal varices, scarring in the distal esophagus. Antral gastritis. Mild portal hypertension gastropathy. Endoscopist: Dr. Quijano Anesthesia: Monitored anesthesia care per anesthesia department Medications: Propofol per anesthesia. Estimated blood loss: 0 After careful discussion of the nature and purpose of the procedure as well as details the technique risks benefits and alternatives consent was obtained. The patient was placed in the left lateral decubitus position and medicated per anesthesia. The tip of the [employer] 570 video scope was passed per orum under direct vision into the esophagus and advanced into the stomach and descending duodenum. The descending duodenum the duodenal bulb and pylorus were symmetrical and normal. The scope was withdrawn into the stomach and the stomach then gently insufflated with air. The antrum revealed inflammation and a few inflammatory appearing polyps. Biopsies were taken for H. pylori testing. The stomach was further insufflated and the scope was then retroflexed and partially withdrawn. The cardia and fundus revealed no varices. There was mild vascular congestion of the proximal body suggestive of portal hypertension gastropathy. The scope was then withdrawn in the forward position. The esophagogastric junction was at 40 cm. There were small varices which disappeared with insufflation in the distal 5 cm of the esophagus. Scarring was also present in the distal esophagus consistent with the site of prior bands. Small varices were also noted in the midesophagus which also disappeared with insufflation of the scope. The proximal esophagus was normal. The procedure was was well tolerated and the patient was observed in recovery. Impressions: Small, grade 1 distal esophageal varices and mid esophageal varices. Scarring of the distal esophagus at the prior banding sites. Mild portal hypertension gastropathy. Mild gastritis. Plan: Await results of antral biopsies. Repeat endoscopy in 1 year. Electronically signed: Juanjose Quijano MD
[2021-02-22 11:22] VITALS: BP 130/86
--- NOTE | 2021-02-22 12:43 | Post Anesthesia Evaluation ---
- Post Anesthesia Evaluation Patient Participated: Yes Airway Patent: Yes Stable Respiratory Function: Yes Nausea/Vomiting: No Temp > 96.8F: Yes Pain Manageable: Yes Adequeate Hydration: Yes Anesthesia Complications: No
== END 2021-02-22 11:45 | disposition home or self-care (01) ==
LOC: GIO 07:20
PROVIDERS: ATTEND Internal Medicine Gastroenterology
DX: D50.9 Iron deficiency anemia, unspecified (principal); I85.00 Esophageal varices without bleeding; K29.50 Unspecified chronic gastritis without bleeding; K63.89 Other specified diseases of intestine; K31.89 Other diseases of stomach and duodenum; E03.9 Hypothyroidism, unspecified; E11.9 Type 2 diabetes mellitus without complications; E66.9 Obesity, unspecified; Z79.899 Other long term (current) drug therapy; Z98.890 Other specified postprocedural states
CPT/HCPCS: 43239; 45378; 82962; 88305; 88342; J2704; J7030